=== PATIENT | female | born 1980 | race African-American/Black ===

== ENCOUNTER 2022-03-23 09:02 | Emergency (ER) | payer BC, MEDICAID ==
[~2022-03-23] VITALS: Ht 167.6 cm; Wt 61.2 kg
[2022-03-23] MEDS ORDERED: ONDANSETRON 4 MG/2 ML VIAL ONE (09:24)
[2022-03-23] MEDS: IV NORMAL SALINE 1000 ML BAG IV ONE (09:44)
[2022-03-23] MEDS: ONDANSETRON 4 MG/2 ML VIAL IV ONE (09:45)
[2022-03-23 10:07] LABS: CARBON DIOXIDE 27 mmol/L (21-32); CHLORIDE 102 mmol/L (98-107); CREATININE 0.6 mg/dL (0.6-1.3); GLUCOSE 69 mg/dL (74-106); POTASSIUM 3.4 mmol/L (3.5-5.1); UREA NITROGEN, BLOOD 9 mg/dL (7-18)
[2022-03-23 10:12] LABS: HEMATOCRIT 29.2 % (31.2-41.9); MEAN CORPUSCULAR HEMOGLOBIN 25.6 uug (24.7-32.8); MEAN CORPUSCULAR VOLUME 78.5 fL (75.5-95.3); PLATELET COUNT (AUTO) 332 K/uL (179-408)
--- NOTE | 2022-03-23 10:20 | NUR ---
A call from lab with report of patient being A+ and not a candidate for Rhogam. . aware.
[2022-03-23 10:29] LABS: *BILIRUBIN,URIN NEGATIVE (NEGATIVE); *BLOOD, URINE NEGATIVE (NEGATIVE); *CLARITY,URINE SLIGHTLY CLOUDY (CLEAR); *COLOR,URINE YELLOW (YELLOW); *KETONES,URINE NEGATIVE (NEGATIVE); *UROBILINOGEN,URINE 0.2 E.U./dl (NORMAL); LEUKOCYTE ESTERASE ,URINE 2+ (NEGATIVE); NITRITE, URINE NEGATIVE (NEGATIVE); UGLUCOSE NEGATIVE (NEGATIVE)
[2022-03-23 10:35] LABS: BACTERIA,URINE FEW /HPF (NONE SEEN); RBC,URINE 0-3 /HPF (0-3); SQUAMOUS EPITHELIAL CELL,UR MODERATE /HPF (NONE SEEN)
[2022-03-23 10:36] LABS: TRICHOMONAS,URINE FEW /HPF (NONE SEEN)
--- NOTE | 2022-03-23 11:14 | NUR ---
Patient po challenged at this time, she drank 120cc's of cramberry juice and ate a small continer of fruits. will continue to monitor.
[2022-03-23] MEDS ORDERED: ONDA4TAB11 PO (11:16)
[2022-03-23] MEDS ORDERED: CEPH500C2 PO (11:16)
[2022-03-23] MEDS ORDERED: CEphaleXIN 500 MG CAPSULE ONE (11:21)
[2022-03-23] MEDS: CEphaleXIN 500 MG CAPSULE PO ONE (11:23)
--- NOTE | 2022-03-23 13:24 | NUR ---
PT WAS D/C'd TO HOME. D/C INSTRUCTIONS GIVEN TO THE PT BY DR QUIROZ.
[2022-03-23 13:25] VITALS: BP 118/68
== END 2022-03-23 13:26 | disposition home or self-care (01) ==
LOC: ER 09:02
DX: O23.41 Unspecified infection of urinary tract in pregnancy, first trimester (principal); N39.0 Urinary tract infection, site not specified; O99.011 Anemia complicating pregnancy, first trimester; O21.9 Vomiting of pregnancy, unspecified; Z3A.01 Less than 8 weeks gestation of pregnancy; E87.6 Hypokalemia; O34.81 Maternal care for other abnormalities of pelvic organs, first trimester; N83.201 Unspecified ovarian cyst, right side; Z91.018 Allergy to other foods
CPT/HCPCS: 99284; 96374; 96361; 76805; 80048; 81001; 85025; 86850; 86900; 86901; 87086; 84702; 36415; J2405; J7040; 70030-TC; 76856; A4663